=== PATIENT | female | born 1945 | race Caucasian/White ===

== ENCOUNTER 2017-06-02 17:41 | Emergency (ER) | payer OTHER ==
[~2017-06-02] VITALS: Ht 157.5 cm; Wt 62.1 kg
[~2017-06-02 17:41] MED LIST: ABAT250V; ALBU90OI61 INH; ASCO500 PO; ASPI325 PO; ASPI81EC PO; ATEN25 PO; ATOR40TA PO; AZIT250 PO; CALCAVITDA PO; ERGO400 PO; LISHYD1012 PO; METF500C PO; METHI10 PO; Nitrostat0.4 MG SL; ONDA4ODT MM; OXYACE5T PO; OXYC10ER PO; PIOG45 PO; PRAMIPEXOLE0.125 MG PO
[2017-06-02 18:30] LABS: BASOPHILS ABSOLUTE AUTO 0.05 K/mm3 (0.00-0.23); BASOPHILS PERCENT AUTO 0 % (0-2); EOSINOPHILS PERCENT AUTO 2 % (0-6); Hemoglobin 15.2 g/dL (11.5-16.0); IMMATURE GRAN ABSOLUTE AUTO 0.04 K/mm3 (0.00-0.10); IMMATURE GRAN PERCENT AUTO 0 % (0-1); LYMPHOCYTES ABSOLUTE AUTO 3.77 K/mm3 (0.84-5.20); LYMPHOCYTES PERCENT AUTO 31 % (21-46); MONOCYTES ABSOLUTE AUTO 0.72 K/mm3 (0.16-1.47); MONOCYTES PERCENT AUTO 6 % (4-13); Mean Corpuscular HGB 30.4 pg (26.0-34.0); Mean Corpuscular Volume 92 fL (80-100); Mean Platelet Volume 10.6 fL (9.1-12.4); NEUTROPHILS ABSOLUTE AUTO 7.39 K/mm3 (1.96-9.15); NEUTROPHILS PERCENT AUTO 61 % (41-73); Platelet Count 291 K/mm3 (150-400); RDW Coefficient Variation 14.8 % (11.7-14.2); RDW Standard Deviation 49.6 fL (35.1-46.3); White Blood Cell Count 12.17 K/mm3 (4.00-11.30)
[2017-06-02 20:57] LABS: Alanine Aminotransfer (ALT/SGP 15 U/L (12-78); Albumin, Blood 3.2 g/dL (3.4-5.0); Albumin/Globulin Ratio 0.8 (0.8-1.8); Alk Phos 95 U/L (50-136); Anion Gap 7 mmol/L (6-16); Aspartate Aminotrans (AST/SGOT 13 U/L (12-37); Bilirubin, Total 0.3 mg/dL (0.1-1.0); Blood Urea Nitrogen 16 mg/dL (8-24); Bun/Creatinine Ratio 22.9 (12.0-20.0); CO2, Blood 27 mmol/L (21-32); Calcium, Blood 8.8 mg/dL (8.5-10.1); Chloride, Blood 105 mmol/L (98-108); Globulin, Blood 4.2 g/dL (2.2-4.0); Glomerular Filtration Rate >60 (60-); Glucose, Blood 127 mg/dL (70-99); Magnesium, Blood 1.9 mg/dL (1.6-2.4); Potassium, Blood 3.9 mmol/L (3.5-5.5); Sodium, Blood 139 mmol/L (136-145); Total Protein, Blood 7.4 g/dL (6.4-8.2)
== END 2017-06-02 22:42 | disposition home or self-care (01) ==
LOC: ER 17:41
PROVIDERS: Emergency Medicine; Physician Assistant
DX: I10 Essential (primary) hypertension (principal); R00.2 Palpitations; Z88.5 Allergy status to narcotic agent; E11.9 Type 2 diabetes mellitus without complications; E78.00 Pure hypercholesterolemia, unspecified; F17.200 Nicotine dependence, unspecified, uncomplicated
CPT/HCPCS: 36415; 71046; 80053; 83735; 83880; 84484; 85025; 93005; 93010; 96374; 99284

== ENCOUNTER 2018-06-21 13:08 | Inpatient (IN) | payer OTHER ==
[~2018-06-21] VITALS: Ht 154.9 cm; Wt 60.1 kg
[2018-06-21] MEDS ORDERED: PRAV20 PO (13:31)
[2018-06-21] MEDS ORDERED: LISI20 PO (13:31)
[2018-06-21] MEDS ORDERED: ATEN25 PO (13:31)
[2018-06-21 13:34] LABS: BASOPHILS ABSOLUTE AUTO 0.06 K/mm3 (0.00-0.23); BASOPHILS PERCENT AUTO 1 % (0-2); EOSINOPHILS ABSOLUTE AUTO 0.04 K/mm3 (0.00-0.68); EOSINOPHILS PERCENT AUTO 0 % (0-6); Hematocrit 45.6 % (33.0-51.0); Hemoglobin 14.8 g/dL (11.5-16.0); IMMATURE GRAN ABSOLUTE AUTO 0.04 K/mm3 (0.00-0.10); IMMATURE GRAN PERCENT AUTO 0 % (0-1); LYMPHOCYTES ABSOLUTE AUTO 1.84 K/mm3 (0.84-5.20); LYMPHOCYTES PERCENT AUTO 16 % (21-46); MONOCYTES ABSOLUTE AUTO 1.03 K/mm3 (0.16-1.47); MONOCYTES PERCENT AUTO 9 % (4-13); Mean Corpuscular HGB Conc 32.5 g/dL (31.5-36.5); Mean Corpuscular Volume 96 fL (80-100); Mean Platelet Volume 9.9 fL (9.1-12.4); NEUTROPHILS ABSOLUTE AUTO 8.76 K/mm3 (1.96-9.15); NEUTROPHILS PERCENT AUTO 75 % (41-73); Platelet Count 279 K/mm3 (150-400); RDW Coefficient Variation 13.7 % (11.7-14.2); RDW Standard Deviation 48.7 fL (35.1-46.3); Red Blood Cell Count 4.77 M/mm3 (3.80-5.20); White Blood Cell Count 11.77 K/mm3 (4.00-11.30)
[2018-06-21 13:51] LABS: Alanine Aminotransfer (ALT/SGP 19 U/L (12-78); Albumin, Blood 3.4 g/dL (3.4-5.0); Albumin/Globulin Ratio 0.8 (0.8-1.8); Alk Phos 81 U/L (50-136); Anion Gap 10 mmol/L (6-16); Aspartate Aminotrans (AST/SGOT 22 U/L (12-37); Bilirubin, Total 0.5 mg/dL (0.1-1.0); Blood Urea Nitrogen 9 mg/dL (8-24); Bun/Creatinine Ratio 10.9 (12.0-20.0); CO2, Blood 25 mmol/L (21-32); Calcium, Blood 8.5 mg/dL (8.5-10.1); Chloride, Blood 100 mmol/L (98-108); Creatinine, Blood 0.83 mg/dL (0.40-1.00); Globulin, Blood 4.3 g/dL (2.2-4.0); Glomerular Filtration Rate >60 (60-); Glucose, Blood 157 mg/dL (70-99); Potassium, Blood 3.6 mmol/L (3.5-5.5); Sodium, Blood 135 mmol/L (136-145); Total Protein, Blood 7.7 g/dL (6.4-8.2); Troponin I <0.015 ng/mL (0.000-0.040)
[2018-06-22 04:59] LABS: Hematocrit 44.2 % (33.0-51.0); Hemoglobin 14.2 g/dL (11.5-16.0); Mean Corpuscular HGB 30.5 pg (26.0-34.0); Mean Corpuscular HGB Conc 32.1 g/dL (31.5-36.5); Mean Corpuscular Volume 95 fL (80-100); Mean Platelet Volume 10.4 fL (9.1-12.4); Platelet Count 301 K/mm3 (150-400); RDW Coefficient Variation 13.7 % (11.7-14.2); RDW Standard Deviation 48.1 fL (35.1-46.3); Red Blood Cell Count 4.65 M/mm3 (3.80-5.20); White Blood Cell Count 8.84 K/mm3 (4.00-11.30)
[2018-06-22 05:18] LABS: Anion Gap 11 mmol/L (6-16); Blood Urea Nitrogen 13 mg/dL (8-24); Bun/Creatinine Ratio 17.3 (12.0-20.0); CO2, Blood 24 mmol/L (21-32); Calcium, Blood 8.7 mg/dL (8.5-10.1); Chloride, Blood 100 mmol/L (98-108); Creatinine, Blood 0.75 mg/dL (0.40-1.00); Glomerular Filtration Rate >60 (60-); Glucose, Blood 205 mg/dL (70-99); Potassium, Blood 3.7 mmol/L (3.5-5.5); Sodium, Blood 135 mmol/L (136-145)
--- NOTE | 2018-06-22 06:38 | NUR ---
a+o, no complaint of sob, wheeze in all 4 quadrants, up most of night states she rarely sleeps more than 2 hours at a stretch, saline locked, 2 L via nc, call light in reach, will continue to monitor and provide appropriat care until report given to returning day shift
--- NOTE | 2018-06-22 12:40 | NUR ---
PT WORRIED ABOUT INSULIN PT WORRIED ABOUT TAKING INSULIN FOR MEAL COVERAGE. PT STATES SHE "DOESNT WANT TO BE ON INSULIN" PT EDUCATED ON NEED FOR IT WHILE IN THE HOSPITAL. PT AGREED TO TAKE COVERAGE.
--- NOTE | 2018-06-22 13:09 | NUR ---
Patient was sitting up in bed and alert when I entered the room. I introduced myself and explained about the department I am from and patient welcomed me warmly saying that she had been expecting me. Patient shared about her health history and some of her current emotional and spiritual concerns and discussed her family unit complications. I listened empathically, explored patient's tenriism beliefs, provided spiritual direction, reinforced helpful attitudes and practices, provided anxiety contaimment and provided prayer. Patient responded well to all interventions and showed signs of restored eva and an elevated mood. Patient expressed gratitude for the visit and asked if I could return the next day.
--- NOTE | 2018-06-22 14:32 | NUR ---
Pt gave [facility] permission to provide care on 06/23/18.
--- NOTE | 2018-06-22 17:46 | NUR ---
SHIFT ASSESSMENT PT HAD A HR IN THE 130S FOR AFTERNOON VITALS WITH A TEMP OF 99.9. CHARGE NURSE NOTIFIED & TYLENOL GIVEN FOR TEMP. TEMP REASSESSED & DECREASED TO 99.3. HR ALSO DECREASED TO 112. WILL CONTINUE TO MONITOR. PT ON 0.5L O2 VIA NC & SATING IN THE 90S. PT DESATS TO 89 ON RA. PT INCREASE IN WHEEZING THIS AFTERNOON, BUT STATES NO SOB. NO OTHER CHANGES IN ASSESSMENT AT THIS TIME. OTHER VITALS STABLE. PT IND IN ROOM AND HAS WALKED THE HALLWAYS IND THIS SHIFT. WILL CONTINUE TO MONITOR UNTIL TURNOVER IS COMPLETE.
--- NOTE | 2018-06-22 18:40 | NUR ---
DR. MCKINNEY CALLED-PT HR ELEVATED DR. MCKINNEY CALLED & INFORMED THAT PT HR RETURNED TO [address] MCKINNEY ORDERED A OT DOSE OF 12.5 METOPEROL TO COVER THE PT RATE. WILL CONTINUE TO MONITOR UNTIL TURNOVER IS COMPLETE. AWAITING MED VERIFICATION.
--- NOTE | 2018-06-23 07:15 | NUR ---
a+o able to make needs known, utilizing a fan, call light in reach, saline locked, 1L via nc, walking rounds completed with day staff
--- NOTE | 2018-06-23 17:19 | NUR ---
SHIFT SUMMARY. A&OX4, SBA WITH FWW IN ROOM. PT CONTINUES WITH 1L O2 NC, DOES NOT USE O2 AT BASELINE, REPORTS BREATHING HAS IMPROVED SINCE ADMISSION. PT DENIES PAIN, N/V, REPORTS HAS HAD POOR APPETITE FOR EXTENDED PERIOD OF TIME PRIOR TO ADMISSION. NO OTHER CHANGES.
--- NOTE | 2018-06-24 05:17 | NUR ---
NOC SHIFT SUMMARY THIS PATIENT HAS BEEN PLEASANT AND COOPERATIVE WITH CARE THIS NIGHT. EARLY IN THE NIGHT SHE COMPLAINED OF COUGH WHICH WAS TREATED WITH TESSALON PEARLS. SINCE THEN SHE HAS SLEPT RESFULLY THROUGH THE NIGHT. VSS. WILL CONTINUE TO MONITOR.
--- NOTE | 2018-06-24 12:55 | NUR ---
Spiritual care visit conducted. Patient was sitting on the edge of her bed and alert when I entered the room. Patient welcomed me in (Patient is known to me from prior [facility] visits). Patient shared with me about her joys and concerns about moving to a SNF. I listened empathically, normalized her experience, provided a calming presence and provided prayer. Patient responded well to all interventions and showed signs of reduced stress. Patient expressed gratitude for my visit.
--- NOTE | 2018-06-24 17:52 | NUR ---
SHIFT SUMMARY. A&OX4, SBA WITH FWW TO BATHROOM, OCCASIONAL INCONTINENCE. PT CONTINUES WIHT DRY HACKING COUGH AT TIMES, MANAGED WELL WITH CURRENT ORDERS. PT WITH WHEEZES THROUGHOUT LUNGS, CONTINUES WITH SCHEDULED NEB TREATMENTS PER RT. O2 1L NC. PT SEEN BY COPD EDUCATOR AND SS TODAY. ALLIED HEALTH NURSE SAW PT. PAPERWORK STARTED FOR MEDICAID ELIGIBILITY PER SS. PT TO FOLLOW UP WITH [facility] AFTER DISCHARGE. HOME HEALTH HAS BEEN ORDERED WELL. PT RECIEVED SHOWER TODAY. NO OTHER CHANGES.
[2018-06-25 05:07] LABS: BASOPHILS ABSOLUTE AUTO 0.01 K/mm3 (0.00-0.23); BASOPHILS PERCENT AUTO 0 % (0-2); EOSINOPHILS ABSOLUTE AUTO 0.02 K/mm3 (0.00-0.68); EOSINOPHILS PERCENT AUTO 0 % (0-6); Hematocrit 40.5 % (33.0-51.0); IMMATURE GRAN ABSOLUTE AUTO 0.08 K/mm3 (0.00-0.10); IMMATURE GRAN PERCENT AUTO 1 % (0-1); LYMPHOCYTES ABSOLUTE AUTO 1.08 K/mm3 (0.84-5.20); LYMPHOCYTES PERCENT AUTO 8 % (21-46); MONOCYTES ABSOLUTE AUTO 0.64 K/mm3 (0.16-1.47); MONOCYTES PERCENT AUTO 5 % (4-13); Mean Corpuscular HGB 30.4 pg (26.0-34.0); Mean Corpuscular HGB Conc 32.1 g/dL (31.5-36.5); Mean Corpuscular Volume 95 fL (80-100); Mean Platelet Volume 10.5 fL (9.1-12.4); NEUTROPHILS ABSOLUTE AUTO 11.54 K/mm3 (1.96-9.15); NEUTROPHILS PERCENT AUTO 86 % (41-73); Platelet Count 303 K/mm3 (150-400); Red Blood Cell Count 4.27 M/mm3 (3.80-5.20); White Blood Cell Count 13.37 K/mm3 (4.00-11.30)
[2018-06-25 05:45] LABS: Albumin, Blood 2.9 g/dL (3.4-5.0); Anion Gap 7 mmol/L (6-16); Blood Urea Nitrogen 17 mg/dL (8-24); Bun/Creatinine Ratio 22.5 (12.0-20.0); CO2, Blood 31 mmol/L (21-32); Calcium, Blood 8.2 mg/dL (8.5-10.1); Chloride, Blood 99 mmol/L (98-108); Creatinine, Blood 0.76 mg/dL (0.40-1.00); Glomerular Filtration Rate >60 (60-); Glucose, Blood 220 mg/dL (70-99); Phosphorus, Blood 2.4 mg/dL (2.5-4.9); Potassium, Blood 4.1 mmol/L (3.5-5.5); Sodium, Blood 137 mmol/L (136-145)
--- NOTE | 2018-06-25 06:15 | NUR ---
NOC SHIFT SUMMARY. THIS PT HAS BEEN VERY PLEASANT AND COOPERATIVE WITH CARE. SHE IS AAOX4, RESP HAVE BEEN EVEN UNLABORED. SHE IS CONSISTENT WITH CALLING FOR ASSISTANCE WHEN NEEDING TO GET UP. SHE SPENT MOST OF THE NIGHT SLEEPING RESTFULLY. CURRENLY AWAKE, IN NO ACUTE DISTRESS. WILL CONTINUE TO MONITOR.
--- NOTE | 2018-06-25 08:10 | NUR ---
PT PLEASANT COOP ALERT ORIENTED. SOME FORGETFUL. DENIES PAIN. H/R REG, MURMER NOTED. NO TELE. LUNGS WHEEZY T/O. ON 1L 02. RESP EASY, UNLABORED. BT X4 LAST BM 2 DAYS PER PT. INCONT. VOIDS INCONT. IN ATTENDS. BED IN LOW POSITION, CALL LITE IN REACH, BED ALARM ON FOR SAFETY. PT AMBULATES INDEPENDANTLY
[2018-06-25] MEDS ORDERED: ACET325 PO (12:43)
[2018-06-25] MEDS ORDERED: ALBU90OI INH (12:44)
[2018-06-25] MEDS ORDERED: BENZ100A PO (12:45)
[2018-06-25] MEDS ORDERED: ROBITUSSIN NIG237 ML PO (12:46)
[2018-06-25] MEDS ORDERED: DOXY100 PO (12:48)
[2018-06-25] MEDS ORDERED: Senna Plus Tab1 EACH PO (12:48)
[2018-06-25] MEDS ORDERED: GUAI600T33 PO (12:49)
[2018-06-25] MEDS ORDERED: Prednisone50 MG PO (12:50)
[2018-06-25] MEDS ORDERED: Acidophilus La100 GM PO (12:50)
[2018-06-25] MEDS ORDERED: ONDA4ODT MM (12:53)
[2018-06-25] MEDS ORDERED: NICO21TP TOP (12:53)
--- NOTE | 2018-06-25 14:30 | NUR ---
DISCHARGE REVIEWED WITH PT. PT VERBALIZED UNDERSTANDING OF MEDS, APPOINTMENT, AND INSTRUCTIONS. IV PULLED IN TACT. NO TELE. PT WHEELED TO DOOR BY AIDE. AT 1439
== END 2018-06-25 14:38 | disposition home or self-care (01) | DRG 189 ==
LOC: ER 13:08 → MEDS 15:57 → ENPENDDIS 06-25 10:26 → MEDS 06-25 14:38
PROVIDERS: Family Medicine; Physician Assistant; ADMIT Internal Medicine
DX: J96.21 Acute and chronic respiratory failure with hypoxia (principal); J44.1 Chronic obstructive pulmonary disease with (acute) exacerbation; R65.10 Systemic inflammatory response syndrome (SIRS) of non-infectious origin without acute organ dysfunction; J96.22 Acute and chronic respiratory failure with hypercapnia; E03.9 Hypothyroidism, unspecified; E11.59 Type 2 diabetes mellitus with other circulatory complications; E78.5 Hyperlipidemia, unspecified; F17.210 Nicotine dependence, cigarettes, uncomplicated; I73.9 Peripheral vascular disease, unspecified; I10 Essential (primary) hypertension
CPT/HCPCS: 36415; 71046; 80048; 80053; 80069; 82947; 83605; 83880; 84145; 84484; 85025; 85027; 93005; 93010; 93922; 94640; 94664; 94667; 94760; 94761; 96365; 96375; 98960; 99285-25; 99406; J0696; J1650; J2405; J2930; J7120

== ENCOUNTER → 2019-04-14 | Outpatient (CLI) | payer OTHER ==
[~2019-04-14] MED LIST changes: +ACET325 PO; +ALBU90OI INH; +Acidophilus La100 GM PO; +Aspir 8181 MG PO; +BENZ100A PO; +DOXY100 PO; +GUAI600T33 PO; +HYDCHL12.5 PO; +LISI20 PO; +NICO21TP TOP; +PRAV20 PO; +Prednisone50 MG PO; +ROBITUSSIN NIG237 ML PO; +Senna Plus Tab1 EACH PO
== END | disposition home or self-care (01) ==
LOC: LAB UCHC 15:06 → LAB SHORT 15:06
DX: N39.0 Urinary tract infection, site not specified (principal)
CPT/HCPCS: 87077; 87086; 87186

== ENCOUNTER → 2019-07-17 | Outpatient (CLI) | payer OTHER | LOC: LAB UCHC 10:20 → LAB SHORT 10:20 | DX: R30.9 Painful micturition, unspecified (principal); R10.31 Right lower quadrant pain | CPT/HCPCS: 87077; 87086; 87186 ==

== ENCOUNTER 2019-09-08 20:27 | Emergency (ER) | payer OTHER ==
[~2019-09-08] VITALS: Ht 157.5 cm; Wt 54.4 kg
[2019-09-08] MEDS ORDERED: Ventolin/Prove6.7 GM INH (20:57)
[2019-09-08] MEDS ORDERED: DONE5 PO (20:59)
[2019-09-08] MEDS ORDERED: LOSA50 PO (21:00)
[2019-09-08 21:05] LABS: BASOPHILS ABSOLUTE AUTO 0.06 K/mm3 (0.00-0.23); BASOPHILS PERCENT AUTO 0 % (0-2); EOSINOPHILS ABSOLUTE AUTO 0.11 K/mm3 (0.00-0.68); EOSINOPHILS PERCENT AUTO 1 % (0-6); Hematocrit 38.1 % (33.0-51.0); Hemoglobin 12.5 g/dL (11.5-16.0); IMMATURE GRAN PERCENT AUTO 1 % (0-1); LYMPHOCYTES PERCENT AUTO 20 % (21-46); MONOCYTES ABSOLUTE AUTO 1.77 K/mm3 (0.16-1.47); MONOCYTES PERCENT AUTO 9 % (4-13); Mean Corpuscular HGB 29.3 pg (26.0-34.0); Mean Corpuscular HGB Conc 32.8 g/dL (31.5-36.5); Mean Corpuscular Volume 89 fL (80-100); Mean Platelet Volume 9.6 fL (9.1-12.4); NEUTROPHILS PERCENT AUTO 70 % (41-73); Platelet Count 431 K/mm3 (150-400); RDW Coefficient Variation 15.2 % (11.7-14.2); RDW Standard Deviation 49.3 fL (35.1-46.3); Red Blood Cell Count 4.26 M/mm3 (3.80-5.20); White Blood Cell Count 18.84 K/mm3 (4.00-11.30)
[2019-09-08 21:19] LABS: Alanine Aminotransfer (ALT/SGP 18 U/L (12-78); Albumin, Blood 2.9 g/dL (3.4-5.0); Albumin/Globulin Ratio 0.6 (0.8-1.8); Alk Phos 117 U/L (50-136); Anion Gap 5 mmol/L (6-16); Aspartate Aminotrans (AST/SGOT 16 U/L (12-37); Bilirubin, Total 0.5 mg/dL (0.1-1.0); Blood Urea Nitrogen 10 mg/dL (8-24); Bun/Creatinine Ratio 14.8 (12.0-20.0); CO2, Blood 27 mmol/L (21-32); Calcium, Blood 8.6 mg/dL (8.5-10.1); Chloride, Blood 98 mmol/L (98-108); Creatinine, Blood 0.68 mg/dL (0.40-1.00); Globulin, Blood 4.7 g/dL (2.2-4.0); Glomerular Filtration Rate >60 (60-); Glucose, Blood 158 mg/dL (70-99); Potassium, Blood 3.6 mmol/L (3.5-5.5); Sodium, Blood 130 mmol/L (136-145); Total Protein, Blood 7.6 g/dL (6.4-8.2); Troponin I <0.015 ng/mL (0.000-0.040)
[2019-09-08] MEDS ORDERED: PRED20 PO (22:06)
[2019-09-08] MEDS ORDERED: AZIT250 PO (22:06)
== END 2019-09-08 22:33 | disposition home or self-care (01) ==
LOC: ER 20:27
PROVIDERS: Emergency Medicine
DX: J44.1 Chronic obstructive pulmonary disease with (acute) exacerbation (principal); E11.9 Type 2 diabetes mellitus without complications; I10 Essential (primary) hypertension; E78.5 Hyperlipidemia, unspecified; E03.9 Hypothyroidism, unspecified; F17.210 Nicotine dependence, cigarettes, uncomplicated; Z88.5 Allergy status to narcotic agent; Z79.899 Other long term (current) drug therapy; Z79.51 Long term (current) use of inhaled steroids; Z79.82 Long term (current) use of aspirin
CPT/HCPCS: 36415; 71045; 80053; 83880; 84484; 85025; 93005; 93010; 99284-25

== ENCOUNTER → 2020-03-13 | Outpatient (CLI) | payer OTHER ==
[~2020-03-13] MED LIST changes: +DONE5 PO; +LOSA50 PO; +PRED20 PO; +Ventolin/Prove6.7 GM INH
== END | disposition home or self-care (01) ==
LOC: LAB UCHC 11:55 → LAB SHORT 11:55
DX: N39.0 Urinary tract infection, site not specified (principal)
CPT/HCPCS: 87077; 87086; 87186

== ENCOUNTER → 2021-04-16 | Outpatient (CLI) | payer OTHER ==
[2021-04-16 18:54] LABS: BASOPHILS ABSOLUTE AUTO 0.11 K/mm3 (0.00-0.23); BASOPHILS PERCENT AUTO 1 % (0-2); EOSINOPHILS ABSOLUTE AUTO 0.24 K/mm3 (0.00-0.68); EOSINOPHILS PERCENT AUTO 2 % (0-6); Hematocrit 43.8 % (33.0-51.0); Hemoglobin 14.4 g/dL (11.5-16.0); IMMATURE GRAN ABSOLUTE AUTO 0.03 K/mm3 (0.00-0.10); IMMATURE GRAN PERCENT AUTO 0 % (0-1); LYMPHOCYTES ABSOLUTE AUTO 3.12 K/mm3 (0.84-5.20); LYMPHOCYTES PERCENT AUTO 29 % (21-46); MONOCYTES ABSOLUTE AUTO 0.85 K/mm3 (0.16-1.47); MONOCYTES PERCENT AUTO 8 % (4-13); Mean Corpuscular HGB 29.8 pg (26.0-34.0); Mean Corpuscular HGB Conc 32.9 g/dL (31.5-36.5); Mean Corpuscular Volume 91 fL (80-100); Mean Platelet Volume 10.9 fL (9.1-12.4); NEUTROPHILS ABSOLUTE AUTO 6.34 K/mm3 (1.96-9.15); NEUTROPHILS PERCENT AUTO 59 % (41-73); Platelet Count 297 K/mm3 (150-400); RDW Standard Deviation 46.8 fL (35.1-46.3); Red Blood Cell Count 4.83 M/mm3 (3.80-5.20); White Blood Cell Count 10.69 K/mm3 (4.00-11.30)
[2021-04-16 19:19] LABS: Alanine Aminotransfer (ALT/SGP 28 U/L (12-78); Albumin, Blood 3.6 g/dL (3.4-5.0); Albumin/Globulin Ratio 0.8 (0.8-1.8); Alk Phos 82 U/L (50-136); Anion Gap 6 mmol/L (6-16); Aspartate Aminotrans (AST/SGOT 23 U/L (12-37); Bilirubin, Total 0.2 mg/dL (0.1-1.0); Blood Urea Nitrogen 17 mg/dL (8-24); Bun/Creatinine Ratio 25.9 (12.0-20.0); CHOL/HDL RATIO 3.8; CO2, Blood 25 mmol/L (21-32); Calcium, Blood 9.2 mg/dL (8.5-10.1); Chloride, Blood 100 mmol/L (98-108); Cholesterol 152 mg/dL (50-200); Creatinine, Blood 0.66 mg/dL (0.40-1.00); Globulin, Blood 4.4 g/dL (2.2-4.0); Glomerular Filtration Rate >60 (60-); Glucose, Blood 99 mg/dL (70-99); HDL Cholesterol 40 mg/dL (>39); LDL/HDL RATIO 2.1; Low Density Lipoprotein Chol 83 mg/dL (0-110); Potassium, Blood 4.3 mmol/L (3.5-5.5); Sodium, Blood 131 mmol/L (136-145); Triglycerides 144 mg/dL (30-160); Very Low Density Lipoprot Chol 28 mg/dL (6-32)
[2021-04-16 19:28] LABS: Thyroid Stimulating Hormone 0.073 uIU/mL (0.360-4.800)
== END ==
LOC: LAB SHORT 17:50
PROVIDERS: Family Medicine
DX: I10 Essential (primary) hypertension (principal); E78.5 Hyperlipidemia, unspecified; R79.89 Other specified abnormal findings of blood chemistry
CPT/HCPCS: 80053; 80061; 84443; 85025

== ENCOUNTER 2022-01-08 13:32 | Emergency (ER) | payer OTHER ==
[~2022-01-08] VITALS: Ht 157.5 cm; Wt 54.4 kg
[2022-01-08 14:26] LABS: BASOPHILS ABSOLUTE AUTO 0.08 K/mm3 (0.00-0.23); BASOPHILS PERCENT AUTO 1 % (0-2); EOSINOPHILS ABSOLUTE AUTO 0.07 K/mm3 (0.00-0.68); EOSINOPHILS PERCENT AUTO 1 % (0-6); Hematocrit 41.5 % (33.0-51.0); Hemoglobin 14.2 g/dL (11.5-16.0); IMMATURE GRAN ABSOLUTE AUTO 0.03 K/mm3 (0.00-0.10); IMMATURE GRAN PERCENT AUTO 0 % (0-1); LYMPHOCYTES ABSOLUTE AUTO 2.34 K/mm3 (0.84-5.20); LYMPHOCYTES PERCENT AUTO 23 % (21-46); MONOCYTES PERCENT AUTO 7 % (4-13); Mean Corpuscular HGB 30.2 pg (26.0-34.0); Mean Corpuscular HGB Conc 34.2 g/dL (31.5-36.5); Mean Corpuscular Volume 88 fL (80-100); NEUTROPHILS ABSOLUTE AUTO 6.92 K/mm3 (1.96-9.15); NEUTROPHILS PERCENT AUTO 68 % (41-73); Platelet Count 288 K/mm3 (150-400); RDW Coefficient Variation 13.7 % (11.7-14.2); RDW Standard Deviation 44.6 fL (35.1-46.3); White Blood Cell Count 10.14 K/mm3 (4.00-11.30)
[2022-01-08 14:45] LABS: Albumin, Blood 3.4 g/dL (3.4-5.0); Albumin/Globulin Ratio 0.8 (0.8-1.8); Bilirubin, Total 0.5 mg/dL (0.1-1.0); Bun/Creatinine Ratio 7.2 (12.0-20.0); Calcium, Blood 8.9 mg/dL (8.5-10.1); Creatinine, Blood 0.69 mg/dL (0.40-1.00); Potassium, Blood 3.1 mmol/L (3.5-5.5); Total Protein, Blood 7.4 g/dL (6.4-8.2)
[2022-01-08 16:55] LABS: Source, Urine Clean Catch
[2022-01-08 16:59] LABS: Appearance, Urine Hazy (Clear); Bilirubin, Urine Neg (Neg); Blood, Urine 1+ (Neg); Color, Urine Yellow (P-Yellow); Glucose Qualitative, Urine Neg (Neg); Ketones, Urine Neg (Neg); Leukocyte Esterase, Urine 3+ (Neg); Nitrite, Urine Pos (Neg); Protein, Urine 1+ (Neg); Specific Gravity, Urine 1.005 (1.003-1.022); Urobilinogen, Urine NORM (Normal)
[2022-01-08 17:11] LABS: Bacteria Many /hpf; Squamous Epithelial Cells Few /hpf (Few)
[2022-01-08] MEDS ORDERED: CEPH500 PO (17:44)
== END 2022-01-08 18:13 | disposition home or self-care (01) ==
LOC: ER 13:32
PROVIDERS: Physician Assistant
DX: N39.0 Urinary tract infection, site not specified (principal); E11.9 Type 2 diabetes mellitus without complications; I10 Essential (primary) hypertension; J44.9 Chronic obstructive pulmonary disease, unspecified; F17.210 Nicotine dependence, cigarettes, uncomplicated; Z79.899 Other long term (current) drug therapy; Z88.5 Allergy status to narcotic agent
CPT/HCPCS: 80053; 81001; 85025; 87077; 87086; 87186; 99283; A9270; J7030

== ENCOUNTER → 2022-01-15 | Outpatient (CLI) | payer OTHER ==
[~2022-01-15] MED LIST changes: +CEPH500 PO
== END | disposition home or self-care (01) ==
LOC: LAB 18:21 → LAB SHORT 18:21
DX: N39.0 Urinary tract infection, site not specified (principal)
CPT/HCPCS: 87077; 87086; 87186

== ENCOUNTER 2022-03-10 07:01 | Inpatient (IN) | payer OTHER ==
[~2022-03-10] VITALS: Ht 152.4 cm; Wt 57.1 kg
[~2022-03-10 07:01] MED LIST changes: +METO50ER PO; -PRAV20 PO; +PRAVASTATIN SOD40 MG PO
[2022-03-10 08:19] LABS: Source, Urine Straight Cath
[2022-03-10 08:21] LABS: Appearance, Urine Clear (Clear); Bilirubin, Urine Neg (Neg); Blood, Urine 2+ (Neg); Color, Urine Amber (P-Yellow); Glucose Qualitative, Urine Neg (Neg); Ketones, Urine 2+ (Neg); Leukocyte Esterase, Urine 1+ (Neg); Nitrite, Urine Pos (Neg); Protein, Urine 2+ (Neg); Urobilinogen, Urine 1+ (Normal)
[2022-03-10 08:32] LABS: BASOPHILS ABSOLUTE AUTO 0.01 K/mm3 (0.00-0.23); BASOPHILS PERCENT AUTO 0 % (0-2); EOSINOPHILS ABSOLUTE AUTO 0.01 K/mm3 (0.00-0.68); EOSINOPHILS PERCENT AUTO 0 % (0-6); Hematocrit 41.4 % (33.0-51.0); Hemoglobin 14.2 g/dL (11.5-16.0); IMMATURE GRAN ABSOLUTE AUTO 0.07 K/mm3 (0.00-0.10); IMMATURE GRAN PERCENT AUTO 1 % (0-1); LYMPHOCYTES ABSOLUTE AUTO 1.26 K/mm3 (0.84-5.20); LYMPHOCYTES PERCENT AUTO 10 % (21-46); MONOCYTES ABSOLUTE AUTO 1.09 K/mm3 (0.16-1.47); MONOCYTES PERCENT AUTO 9 % (4-13); Mean Corpuscular HGB 29.7 pg (26.0-34.0); Mean Corpuscular HGB Conc 34.3 g/dL (31.5-36.5); Mean Corpuscular Volume 87 fL (80-100); Mean Platelet Volume 9.4 fL (9.1-12.4); NEUTROPHILS ABSOLUTE AUTO 10.44 K/mm3 (1.96-9.15); NEUTROPHILS PERCENT AUTO 81 % (41-73); Platelet Count 251 K/mm3 (150-400); RDW Coefficient Variation 14.8 % (11.7-14.2); RDW Standard Deviation 46.6 fL (35.1-46.3); Red Blood Cell Count 4.78 M/mm3 (3.80-5.20); White Blood Cell Count 12.88 K/mm3 (4.00-11.30)
[2022-03-10 08:38] LABS: Bacteria Many /hpf; Squamous Epithelial Cells Many /hpf (Few)
[2022-03-10 08:39] LABS: White Blood Cells, Urine 0-2 /hpf (0-5)
[2022-03-10 08:40] LABS: Red Blood Cells, Urine 0-2 /hpf (0-2)
[2022-03-10 08:42] LABS: Transitional Epithelial Cells Few /hpf (0-Rare)
[2022-03-10 08:53] LABS: Albumin, Blood 2.9 g/dL (3.4-5.0); Albumin/Globulin Ratio 0.7 (0.8-1.8); Bilirubin, Total 0.8 mg/dL (0.1-1.0); Bun/Creatinine Ratio 18.6 (12.0-20.0); Calcium, Blood 9.1 mg/dL (8.5-10.1); Creatinine, Blood 0.59 mg/dL (0.40-1.00); Globulin, Blood 3.9 g/dL (2.2-4.0); Magnesium, Blood 1.7 mg/dL (1.6-2.4); Total Protein, Blood 6.8 g/dL (6.4-8.2)
[2022-03-10] MEDS ORDERED: CEFD300 PO (09:44)
[2022-03-10 10:50] LABS: Influenza A, PCR NEGATIVE (NEGATIVE); Influenza B, PCR NEGATIVE (NEGATIVE); Resp Syncytial Virus, PCR NEGATIVE (NEGATIVE); SARS-Cov-2 (COVID-19) PCR, MMC NEGATIVE (NEGATIVE)
[2022-03-10 11:37] LABS: Creatine Kinase MB 7.2 ng/mL (0.0-3.6)
--- NOTE | 2022-03-10 18:50 | NUR ---
RECIEVED REPORT FROM YAHIR ALLERD IN ER AROUND 1500 REGARDING PATIENT ADMITTING TO MEDICAL FLOOR WITH DIAGNOSIS OF SEPSIS SECONDARY TO UTI. PATIENT ARRIVED TO ROOM 326 AROUND 1530 VIA GURNEY. PATIENT TRANSFERRED TO BED USING SLIDER SHEET. PATIENT ALERT AND ORIENTED TO SELF. SLOW TO RESPOND AND ABLE TO FOLLOW SIMPLE COMMAND. PATIENT ON TELE AFIB IN 80'S BPM PER COMMUNICATIONS SCIENTIST LALI. PATIENT HAD JEROME PLACED IN ER. ADMISSION AND MEDS RECONCILLATION WAS COMPLETED. VITAL SIGNS REVIEWED. BS TAKEN AND WAS 103. PATIENT DID NOT RECIEVED COVERAGED. BED IN LOWEST POSITION LOCKED, BED ALARM ON AND CALL LIGHT IN REACH.
--- NOTE | 2022-03-10 20:08 | NUR ---
NOTE NEW IV PLACED AND BOLUS OF NS RESTARTED.
--- NOTE | 2022-03-10 23:26 | NUR ---
NOTE CALLED BY TELE, PT HR IN 120'S UP TO [address] DUQUE. HE STS IF ASYMPTOMATIC KEEP GIVING HER NS FLUID AND CONTINUE TO MONITOR HER. WILL CONTINUE NS AT 125/HR AND WILL MONITOR HER HR AND BLOOD PRESSURE.
--- NOTE | 2022-03-11 04:39 | NUR ---
SHIFT SUMMARY PT CONTINUES TO HAVE FLUIDS RUNNING. PT HR CONTINUES TO BE IN THE 110'S AND 120'S. PT ASYMPTOMATIC. PT HAS BEEN SLEEPING OFF AND ON MUCH OF THE NIGHT. PT'S MOST RECENT VITALS ARE THE BEST THEY HAVE BEEN TONIGHT. PT STS THAT SHE IS TIRED BUT NOT IN PAIN. PT IS ASKING FOR COFFEE. PT DOES HAVE SOME MOMENTS OF CONFUSION. WHILE ASKING FOR COFFEE SHE STS SHE NEEDS SOMETHING FOR THE CHILDREN. PT IS PLEASANT AND COOPERATIVE. CALL LIGHT IS WITHIN HER REACH AND SHE STS SHE KNOWS HOW TO USE IT.
[2022-03-11 05:29] LABS: Hematocrit 34.8 % (33.0-51.0); Hemoglobin 11.9 g/dL (11.5-16.0); Mean Corpuscular HGB 29.5 pg (26.0-34.0); Mean Corpuscular HGB Conc 34.2 g/dL (31.5-36.5); Mean Corpuscular Volume 86 fL (80-100); Mean Platelet Volume 9.4 fL (9.1-12.4); Platelet Count 249 K/mm3 (150-400); RDW Coefficient Variation 14.9 % (11.7-14.2); RDW Standard Deviation 47.1 fL (35.1-46.3); Red Blood Cell Count 4.03 M/mm3 (3.80-5.20); White Blood Cell Count 11.55 K/mm3 (4.00-11.30)
[2022-03-11 06:03] LABS: Anion Gap 10 mmol/L (6-16); Blood Urea Nitrogen 9 mg/dL (8-24); Bun/Creatinine Ratio 16.3 (12.0-20.0); CHOL/HDL RATIO 2.7; CO2, Blood 24 mmol/L (21-32); Calcium, Blood 8.2 mg/dL (8.5-10.1); Chloride, Blood 99 mmol/L (98-108); Cholesterol 120 mg/dL (50-200); Creatinine, Blood 0.55 mg/dL (0.40-1.00); Glomerular Filtration Rate 94 (60-); Glucose, Blood 90 mg/dL (70-99); HDL Cholesterol 45 mg/dL (>39); LDL/HDL RATIO 1.4; Low Density Lipoprotein Chol 64 mg/dL (0-110); Potassium, Blood 3.2 mmol/L (3.5-5.5); Sodium, Blood 133 mmol/L (136-145); Triglycerides 54 mg/dL (30-160); Very Low Density Lipoprot Chol 10 mg/dL (6-32)
[2022-03-11] MEDS ORDERED: NITR100CA PO (16:34)
[2022-03-11] MEDS ORDERED: FLUTICASONE-SA1 EAC8 INH (16:35)
[2022-03-11] MEDS ORDERED: PRAMIPEXOLE D0.25 M1 PO (16:38)
--- NOTE | 2022-03-11 19:14 | NUR ---
SHIFT SUMMARY: PATIENT ALERT AND ORIENTED TO SELF. ABLE TO FOLLOW SIMPLE COMMAND. PATIENT FAVOR TO HER RIGHT SIDE AND NEGLECTING HER LEFT SIDE. PUPILS ARE EQUAL. PATIENT ON TELE AND HAS BEEN RUNNING AFIB 110'S-150'S. PATIENT ON RA WITH SPO2 ABOVE 92%. BEDREST AND TURN Q2. SPEECH THERAPY DID A SWALLOW EVAL TODAY. DIET CHANGED TO PUREE WITH NO STRAW AND FEEDER 1:1. HEAD CT WAS DONE TODAY. INFUSING NS 125 MLS/HR. JEROME PATENT DRAIN TO GRAVITY WITH CLEAR YELLOW URINE. PATIENT HAD A BEDBATH TODAY AND TOLERATED WELL. POOR APPETITE. ATE ABOUT 10% ALL HER MEALS TODAY. RECEIVED ALL SCHEDULED MEDS THIS SHIFT. VITAL SIGNS REVIEWED. BED IN LOWEST POSITION, LOCKED AND CALL LIGHT IN REACH.
--- NOTE | 2022-03-12 01:31 | NUR ---
NOTE PT HR INTO THE 130'S-170'S. DR. GONZALEZ CONSULTED. EKG PERFORMED. DR. GONZALEZ CAME TO THE ROOM AND THERAPEUTIC TREATMENTS DONE AND 5MG METROPROLOL PUSH GIVEN TO PT. PT HR NOW IN THE 110'S-120'S, WHICH IS WHERE SHE HAD BEEN PREVIOUSLY. VITALS MONITORED AND TELE CONTINUES TO BE MONITORED. FLUIDS DISCONTINUED PER
--- NOTE | 2022-03-12 04:44 | NUR ---
SHIFT SUMMARY PT WAS HAVING HR ISSUES (SEE PREVIOUS NOTE). PT HR NOW AROUND 80'S. PT HAS NO CURRENT COMPLAINTS AND APPEARS TO BE RESTING QUIETLY. PT HAS BEEN PLEASANT AND COOPERATIVE. PT STILL LEANING TO HER R SIDE AND IS HAVING SOME DIFFICULTY TURNING HER NECK FROM THE RIGHT SIDE TO THE MIDDLE OR THE LEFT. IS AWARE. PT HAD DIFFICULTY SWALLOWING HER PILLS WITH APPLESAUCE. CALL LIGHT IS WITHIN HER REACH.
[2022-03-12 07:26] LABS: BASOPHILS ABSOLUTE AUTO 0.02 K/mm3 (0.00-0.23); BASOPHILS PERCENT AUTO 0 % (0-2); EOSINOPHILS PERCENT AUTO 0 % (0-6); Hematocrit 37.9 % (33.0-51.0); Hemoglobin 12.5 g/dL (11.5-16.0); IMMATURE GRAN ABSOLUTE AUTO 0.07 K/mm3 (0.00-0.10); IMMATURE GRAN PERCENT AUTO 1 % (0-1); LYMPHOCYTES ABSOLUTE AUTO 1.62 K/mm3 (0.84-5.20); LYMPHOCYTES PERCENT AUTO 13 % (21-46); MONOCYTES ABSOLUTE AUTO 1.15 K/mm3 (0.16-1.47); MONOCYTES PERCENT AUTO 10 % (4-13); Mean Corpuscular HGB 28.9 pg (26.0-34.0); Mean Corpuscular Volume 88 fL (80-100); Mean Platelet Volume 9.1 fL (9.1-12.4); NEUTROPHILS PERCENT AUTO 76 % (41-73); Platelet Count 230 K/mm3 (150-400); RDW Coefficient Variation 15.1 % (11.7-14.2); RDW Standard Deviation 48.1 fL (35.1-46.3); Red Blood Cell Count 4.32 M/mm3 (3.80-5.20); White Blood Cell Count 12.16 K/mm3 (4.00-11.30)
[2022-03-12 07:47] LABS: Bun/Creatinine Ratio 14.9 (12.0-20.0); Calcium, Blood 8.2 mg/dL (8.5-10.1); Creatinine, Blood 0.54 mg/dL (0.40-1.00)
[2022-03-12 09:33] LABS: CHOL/HDL RATIO 2.7; Cholesterol 121 mg/dL (50-200); HDL Cholesterol 45 mg/dL (>39); LDL/HDL RATIO 1.4; Low Density Lipoprotein Chol 64 mg/dL (0-110); Triglycerides 58 mg/dL (30-160); Very Low Density Lipoprot Chol 11 mg/dL (6-32)
--- NOTE | 2022-03-12 17:49 | NUR ---
SHIFT SUMMARY PT A&OX3 AND IN PLEASENT MOOD T/O SHIFT. TELE ALERTED THIS RN SEVERAL TIMES T/O SHIFT REGAURDING TACHYCARDIA- NOTIFIED, IV METOPROLOL ADMINISTERED, MEDS ADJUSTED. PLAN TO MED MANAGE HR. MEDICALLY. HTN NOTED. TELE IN PLACE, AFLUTT 110'S. CALL LIGHT W/IN REACH. TOLERATING PO INTAKE W/ FEED ASSIST.
--- NOTE | 2022-03-13 06:09 | NUR ---
SHIFT SUMMARY PATIENT DENIES PAIN, NAUSEA, AND SHORTNESS OF BREATH. PATIENT IS A LIFT FOR TRANSFERS. PATIENT IS A 2P TO REPOSITION. JEROME IS PATENT AND DRAINING TO GRAVITY. PATIENT HAS LEFT SIDE DEFICITS. PATIENT A&O 2-3. NEW IV PLACED TO LEFT FOREARM. PATIENT HR SUSTAINING IN 140'S. DR. GONZALEZ CALLED, NEW ORDERS FOR ONE TIME CARDIZEM PUSH. TELE NOTIFIED AND MEDICATION GIVEN. GOOD EFFECT. HR SUSTAINING 90'S-LOW 100'S. PATIENT STATES SHE HAD NO SYMPTOMS, BUT PATIENT TACHYPNEA. PATIENT SLEPT MOST OF SHIFT. PATIENT IS PLEASANT AND COOPERATIVE WITH CARE.
[2022-03-13 06:24] LABS: BASOPHILS ABSOLUTE AUTO 0.02 K/mm3 (0.00-0.23); BASOPHILS PERCENT AUTO 0 % (0-2); EOSINOPHILS ABSOLUTE AUTO 0.02 K/mm3 (0.00-0.68); EOSINOPHILS PERCENT AUTO 0 % (0-6); Hematocrit 37.4 % (33.0-51.0); Hemoglobin 12.5 g/dL (11.5-16.0); IMMATURE GRAN ABSOLUTE AUTO 0.06 K/mm3 (0.00-0.10); IMMATURE GRAN PERCENT AUTO 0 % (0-1); LYMPHOCYTES ABSOLUTE AUTO 2.27 K/mm3 (0.84-5.20); LYMPHOCYTES PERCENT AUTO 17 % (21-46); MONOCYTES ABSOLUTE AUTO 1.07 K/mm3 (0.16-1.47); MONOCYTES PERCENT AUTO 8 % (4-13); Mean Corpuscular HGB 29.1 pg (26.0-34.0); Mean Corpuscular HGB Conc 33.4 g/dL (31.5-36.5); Mean Corpuscular Volume 87 fL (80-100); Mean Platelet Volume 9.3 fL (9.1-12.4); NEUTROPHILS ABSOLUTE AUTO 10.13 K/mm3 (1.96-9.15); NEUTROPHILS PERCENT AUTO 75 % (41-73); Platelet Count 244 K/mm3 (150-400); RDW Coefficient Variation 15.3 % (11.7-14.2); RDW Standard Deviation 47.7 fL (35.1-46.3); White Blood Cell Count 13.57 K/mm3 (4.00-11.30)
[2022-03-13 06:54] LABS: Bun/Creatinine Ratio 27.1 (12.0-20.0); Calcium, Blood 8.2 mg/dL (8.5-10.1); Creatinine, Blood 0.59 mg/dL (0.40-1.00); Potassium, Blood 3.4 mmol/L (3.5-5.5)
--- NOTE | 2022-03-13 17:21 | NUR ---
SHIFT SUMMARY: NO ACUTE EVENTS. TELEMETRY SHOWS AFIB 95-120'S, NO IV CARDIAC MEDS GIVEN THIS SHIFT. METOPROLOL DOSE INCREASED. MORE ALERT THIS AFTERNOON, BUT IS HALLUCINATING PER HER DAUGHTER (TALKED ABOUT GOING OUTSIDE LAST NIGHT WIH HER BOYS AND WATCHED A MOVIE). BREATH SOUNDS DIM WITH WHEEZES, PT DENIED SOB AND SAID HER BREATHING WAS FINE, O2 SAT 96% ON RA. JEROME DRAINING ADEQUATE URINE. POTASSIUM REPLACED. WAS ABLE TO DANGLE AT BEDSIDE THIS MORNING. DAUGHTER VISITED THIS AFTENOON.
--- NOTE | 2022-03-14 04:38 | NUR ---
SHIFT SUMMARY PT HR SUSTAINING AROUND 100-135 THROUGHOUT NIGHT, INCREASING TO 170/180'S WITH TURNING AND PERICARE BUT DECREASES ONCE RESTING. IV FLUIDS RUNNING. JEROME CATHETER IN PLACE, CLEAR YELLOW URINE FOR OUTPUT. MEPILEX INTAKE ON COCCYX. NO S/S OF DISTRESS DURING NIGHT. WILL CONTINUE TO MONITOR.
--- NOTE | 2022-03-14 05:04 | NUR ---
0500 NOTIFIED BY TELE PT HAD 5 BEATS VTACH. PT ASLEEP SNORING, HR BACK DOWN TO 110'S AT ASSESSMENT. NOTIFIED OF VTACH AND HR SUSTAINING 100-130 OVERNIGHT. NO NEW ORDERS.
[2022-03-14 06:13] LABS: BASOPHILS ABSOLUTE AUTO 0.02 K/mm3 (0.00-0.23); BASOPHILS PERCENT AUTO 0 % (0-2); EOSINOPHILS ABSOLUTE AUTO 0.05 K/mm3 (0.00-0.68); EOSINOPHILS PERCENT AUTO 0 % (0-6); Hematocrit 35.6 % (33.0-51.0); Hemoglobin 12.1 g/dL (11.5-16.0); IMMATURE GRAN ABSOLUTE AUTO 0.07 K/mm3 (0.00-0.10); IMMATURE GRAN PERCENT AUTO 1 % (0-1); LYMPHOCYTES ABSOLUTE AUTO 1.84 K/mm3 (0.84-5.20); LYMPHOCYTES PERCENT AUTO 16 % (21-46); MONOCYTES ABSOLUTE AUTO 0.78 K/mm3 (0.16-1.47); MONOCYTES PERCENT AUTO 7 % (4-13); Mean Corpuscular HGB 29.5 pg (26.0-34.0); Mean Corpuscular Volume 87 fL (80-100); Mean Platelet Volume 9.9 fL (9.1-12.4); NEUTROPHILS ABSOLUTE AUTO 9.13 K/mm3 (1.96-9.15); NEUTROPHILS PERCENT AUTO 77 % (41-73); Platelet Count 242 K/mm3 (150-400); RDW Coefficient Variation 15.8 % (11.7-14.2); RDW Standard Deviation 49.3 fL (35.1-46.3); White Blood Cell Count 11.89 K/mm3 (4.00-11.30)
[2022-03-14 06:34] LABS: Bun/Creatinine Ratio 25.2 (12.0-20.0); Calcium, Blood 8.3 mg/dL (8.5-10.1); Creatinine, Blood 0.48 mg/dL (0.40-1.00); Potassium, Blood 3.6 mmol/L (3.5-5.5)
--- NOTE | 2022-03-14 15:21 | NUR ---
1115: PT IN AFIB, HR TRENDING > 120 SUSTAINED. RECEIVED METOPROLOL 50 MG PO THIS MORNING. DR. VASQUEZ NOTIFIED. THIS AUTHOR ASKED PROVIDER TO CONSIDER LOW DOSE OF CARDIZEM FOR RATE CONTROL. 1200: PROVIDER ORDERED ADDITIONAL 25 MG DOSE OF METOPROLOL. ASKED THIS AUTHOR TO WATCH HR AND REPORT IN A COUPLE OF HOURS TO SEE IF MEDICATIONS NEEDED TO BE ADJUSTED. 1520: ASKED TELEMETRY WHAT PT'S AVG HR HAS BEEN OVER THE PAST FEW HOURS; IT HAS NOT GONE HIGHER THAN 121 SINCE 1330. CURRENT HR IS 95. NOTIFIED PROVIDER OF DECREASE IN HR, MAY STILL ADJUST MEDICATIONS.
--- NOTE | 2022-03-14 19:29 | NUR ---
SHIFT SUMMARY: AFTER GIVING 100 MG METOPROLOL AT 1730, HR HAS DECREASED TO 90'S WITH OCCASIONAL INCREASES TO 110'S. NO SIGNIFICANT CHANGE IN NEURO EXAM; STILL WITH RIGHT GAZE, WEAKNESS ON L SIDE, L FACIAL DROOP. PT VERY SLEEPY THIS MORNING. JEROME PATENT. DENIES PAIN UNLESS BEING REPOSITIONED. WORKED WITH PHYSICAL THERAPY TODAY, INCREASED WEAKNESS NOTED (PERHAPS R/T SOMNOLENCE?). APPETITE OK, REQUIRES FEEDING ASSISTANCE. DAUGHTER MARQUEZ VISITED FOR A SHORT TIME TODAY.
--- NOTE | 2022-03-15 04:22 | NUR ---
Shift Summary HR maintaining around 90-120 overnight, increasing to 140's with care. 7 beats VTACH, no symptoms. SBP elevated above 160, hydralyzine given that was effective. No s/s of distress noted during shift. Goodwin draining clear yellow urine. New mepilex applied to R buttock tear. C1xfcsq maintained. Bed low and locked. Will continue to monitor.
[2022-03-15 05:27] LABS: BASOPHILS ABSOLUTE AUTO 0.02 K/mm3 (0.00-0.23); BASOPHILS PERCENT AUTO 0 % (0-2); EOSINOPHILS PERCENT AUTO 1 % (0-6); Hematocrit 37.7 % (33.0-51.0); IMMATURE GRAN ABSOLUTE AUTO 0.06 K/mm3 (0.00-0.10); IMMATURE GRAN PERCENT AUTO 1 % (0-1); LYMPHOCYTES ABSOLUTE AUTO 1.68 K/mm3 (0.84-5.20); LYMPHOCYTES PERCENT AUTO 15 % (21-46); MONOCYTES ABSOLUTE AUTO 0.73 K/mm3 (0.16-1.47); MONOCYTES PERCENT AUTO 6 % (4-13); Mean Corpuscular HGB 29.7 pg (26.0-34.0); Mean Corpuscular HGB Conc 34.5 g/dL (31.5-36.5); Mean Corpuscular Volume 86 fL (80-100); Mean Platelet Volume 9.7 fL (9.1-12.4); NEUTROPHILS ABSOLUTE AUTO 8.76 K/mm3 (1.96-9.15); NEUTROPHILS PERCENT AUTO 77 % (41-73); Platelet Count 250 K/mm3 (150-400); RDW Coefficient Variation 15.5 % (11.7-14.2); RDW Standard Deviation 48.5 fL (35.1-46.3); Red Blood Cell Count 4.37 M/mm3 (3.80-5.20); White Blood Cell Count 11.35 K/mm3 (4.00-11.30)
[2022-03-15 05:59] LABS: Albumin, Blood 2.2 g/dL (3.4-5.0); Albumin/Globulin Ratio 0.7 (0.8-1.8); Bilirubin, Total 0.6 mg/dL (0.1-1.0); Bun/Creatinine Ratio 21.8 (12.0-20.0); Calcium, Blood 8.1 mg/dL (8.5-10.1); Creatinine, Blood 0.41 mg/dL (0.40-1.00); Globulin, Blood 3.3 g/dL (2.2-4.0); Potassium, Blood 2.9 mmol/L (3.5-5.5); Total Protein, Blood 5.5 g/dL (6.4-8.2)
--- NOTE | 2022-03-15 06:13 | NUR ---
K+ 2.9. Paged Dr. Eugene, new order for KCL 60mEq IV once.
--- NOTE | 2022-03-15 16:12 | NUR ---
SHIFT SUMMARY: NO ACUTE EVENTS. HR STABLE, AFIB 92-108. WAS HYPERTENSIVE THIS MORNING; PROVIDER INCREASED LOSARTAN TO 100 MG, HTN RESOLVED WITHOUT GIVING ANY PRN IV MEDICATION. MORE ALERT TODAY, ASKING QUESTIONS, AND LUE WEAKNESS SLIGHTLY IMPROVED. IS CONFUSED, HAVING HALLUCINATIONS OCCASIONALLY. MEDICATED FOR BACK PAIN WITH TYLENOL. APPETITE ALSO SLIGHTLY IMPROVED.
--- NOTE | 2022-03-16 04:17 | NUR ---
SHIFT SUMMARY PT SLEPT OFF AND ON THIS EVENING. ALERT TO SELF ONLY. PT HAVING MILD HALLUCINATIONS INTERMITTENTLY. CONTINUES WITH LEFT SIDED WEAKNESS AND GAZE TO THE RIGHT. NO CHANGE IN NEURO STATUS. PT HAD TWO SMALL BM'S. MEPILEX CHANGED TO LEFT BUTTOCKS SKIN TEAR. PT IS STIFF AND PAINFUL WITH TURNING AND REPOSITIONING. HEART RATE RANGING FROM THE LOW 100'S TO THE 170'S. MOSTLY BUMPING BETWEEN THE 110'S AND THE 130'S. NEVER SUSTAINING ABOUT THE 110'S AND ONLY REACHING THE 170'S DURING REPOSITIONING. PT ALSO HAD A 21 BEAT RUN OF VTACH. DR. BOOKER NOTIFIED. MAGNESIUM ADDED ON TO MORNING LABS. OTHERWISE NO NEW ORDERS AT THIS TIME.
[2022-03-16 05:09] LABS: BASOPHILS ABSOLUTE AUTO 0.01 K/mm3 (0.00-0.23); BASOPHILS PERCENT AUTO 0 % (0-2); EOSINOPHILS ABSOLUTE AUTO 0.07 K/mm3 (0.00-0.68); EOSINOPHILS PERCENT AUTO 1 % (0-6); Hematocrit 38.9 % (33.0-51.0); IMMATURE GRAN ABSOLUTE AUTO 0.06 K/mm3 (0.00-0.10); IMMATURE GRAN PERCENT AUTO 1 % (0-1); LYMPHOCYTES ABSOLUTE AUTO 1.89 K/mm3 (0.84-5.20); LYMPHOCYTES PERCENT AUTO 18 % (21-46); MONOCYTES ABSOLUTE AUTO 0.67 K/mm3 (0.16-1.47); MONOCYTES PERCENT AUTO 6 % (4-13); Mean Corpuscular HGB 29.1 pg (26.0-34.0); Mean Corpuscular HGB Conc 33.4 g/dL (31.5-36.5); Mean Corpuscular Volume 87 fL (80-100); Mean Platelet Volume 9.4 fL (9.1-12.4); NEUTROPHILS ABSOLUTE AUTO 7.85 K/mm3 (1.96-9.15); NEUTROPHILS PERCENT AUTO 74 % (41-73); Platelet Count 268 K/mm3 (150-400); RDW Coefficient Variation 15.7 % (11.7-14.2); RDW Standard Deviation 49.1 fL (35.1-46.3); Red Blood Cell Count 4.47 M/mm3 (3.80-5.20); White Blood Cell Count 10.55 K/mm3 (4.00-11.30)
[2022-03-16 05:41] LABS: Bun/Creatinine Ratio 24.1 (12.0-20.0); Calcium, Blood 8.1 mg/dL (8.5-10.1); Creatinine, Blood 0.5 mg/dL (0.40-1.00); Magnesium, Blood 1.7 mg/dL (1.6-2.4); Potassium, Blood 3.8 mmol/L (3.5-5.5)
--- NOTE | 2022-03-16 16:46 | NUR ---
NO ACUTE CHANGES AT THIS TIME. PT AO AND TALKS MOST OF HER SPEACH MAKES SENSE. AT TIMES SHE WILL THINK SHE HOLDS SOMETHING IN HER HAD THAT IS NOT THERE. PT TURN EVERY COUPLE HOURS AND IS COOPERATIVE OF CARE. PT STILL GAZES TO THE RIGHT, BUT NOT PRONOUNCE IN THE START OF SHIFT. PT CONTINUES TO HAVE L SIDED WEAKNESS WITH NO IMPROVEMENTS. JUSTUS IS PATIENT AT THIS TIME. BED ALARM IS IN PLACE AND CALL LIGHT WITHIN REACH. WILL CONTINUE TO MONITOR.
--- NOTE | 2022-03-17 03:18 | NUR ---
ALERT TO SELF (BELIEVES SHE IS 40 AND THAT HER MOTHER WILL BE HERE TO VISIT). C/O PAIN "EVERYWHERE" - PRN TYLENOL GIVEN. TELE: A-FIB WITH HR UP TO 150 - MD INFORMED, NEW ORDER FOR PRN METOPROLOL GIVEN. REPOSITIONED APPROX Q2 HRS. PO FLUIDS OFFERED FREQUENTLY; PATIENT STATES SHE LOVES ENSURE. FOAM DRSGS TO COCCYX AND R BUTTOCK CDI. JEROME PATENT. BED ALARM. CALL LIGHT IN REACH; ENCOURAGED TO MAKE NEEDS KNOWN. FREQUENT ROUNDING/ ANTICIPATION OF NEEDS.
--- NOTE | 2022-03-17 16:28 | NUR ---
NO ACUTE CHANGES AT THIS TIME. PT CONTINUES WITH L SIDED WEAKNESS AND NEED TURNED EVERY COUPLE HOURS.PT WILL TALK WITH SOME THINGS THAT DO NOT MAKE SENSE THEN OTHER TIMES PT WILL BE MORE UNDERSTANDABLE. CALL LIGHT PLACED AND BED ALARM IS ON WILL CONTINUE TO MONITOR.
--- NOTE | 2022-03-18 07:26 | NUR ---
ALERT TO SELF; CALM AND COOPERATIVE WITH CARE. DENIES PAIN THIS SHIFT. 2X ASSIST TO TURN /CHANGE Q2 HRS; SEVERAL INC BM THIS SHIFT. DRESSINGS TO COCCYX AND R BUTTOCK CHANGED. PRN METOPROLOL GIVEN FOR SBP > 160 AND HR BRIEFLY UP TO 150 INTERMITTENTLY; IMPROVEMENT IN VS AFTER ADMIN. IVF PER ORDERS. PO FLUIDS ENCOURAGED; GOOD ENSURE INTAKE. BED ALARM SET, CALL LIGHT IN REACH, FREQUENT ROUNDING / ANTICIPATION OF NEEDS.
--- NOTE | 2022-03-18 16:51 | NUR ---
SHIFT SUMMARY- ON RA. RUNNING NS @ 75 HR. IV PATENT RUNNING WELL. BM ON SHIFT. D/C JEROME, FIRST URINATION 2 HRS AFTER IN BRIEF. PT REPORTS SHE SOMETIME FEELS WHEN SHE CAN URINATE. A@O X2. DAUGHTER REPORTS SOME CONFUSION. NURSE DID NOT SEE CONFUSION EPISODES. MEDS CRUSHED IN APPLESAUCE. APPETITE GOOD. SAT IN CHAIR FOR HR OF SHIFT. REPOSTIONED Q2. CALL LIGHT IN REACH, SIDE RAILS UP, AND BED ALARM ON FOR SAFETY.
--- NOTE | 2022-03-19 04:06 | NUR ---
SHIFT SUMMARY: Patient A/Ox1, bed alarm utilized for patient safety. Neuro checks remained unchanged overnight. Pt did recieve 1 PRN dose of IV metoprolol for a systolic bp >160. Patient appeared to rest comfortably in bed between cares. pt incontient of B/B. Repostioned Q2h. IVF continue to infuse.
[2022-03-19 08:16] LABS: BASOPHILS ABSOLUTE AUTO 0.03 K/mm3 (0.00-0.23); BASOPHILS PERCENT AUTO 0 % (0-2); EOSINOPHILS ABSOLUTE AUTO 0.11 K/mm3 (0.00-0.68); EOSINOPHILS PERCENT AUTO 1 % (0-6); Hematocrit 38.9 % (33.0-51.0); Hemoglobin 13.2 g/dL (11.5-16.0); IMMATURE GRAN ABSOLUTE AUTO 0.05 K/mm3 (0.00-0.10); IMMATURE GRAN PERCENT AUTO 0 % (0-1); LYMPHOCYTES PERCENT AUTO 15 % (21-46); MONOCYTES ABSOLUTE AUTO 0.93 K/mm3 (0.16-1.47); MONOCYTES PERCENT AUTO 8 % (4-13); Mean Corpuscular HGB 29.9 pg (26.0-34.0); Mean Corpuscular HGB Conc 33.9 g/dL (31.5-36.5); Mean Corpuscular Volume 88 fL (80-100); Mean Platelet Volume 9.8 fL (9.1-12.4); NEUTROPHILS ABSOLUTE AUTO 8.85 K/mm3 (1.96-9.15); NEUTROPHILS PERCENT AUTO 76 % (41-73); Platelet Count 297 K/mm3 (150-400); RDW Coefficient Variation 16.4 % (11.7-14.2); RDW Standard Deviation 52.4 fL (35.1-46.3); Red Blood Cell Count 4.41 M/mm3 (3.80-5.20); White Blood Cell Count 11.67 K/mm3 (4.00-11.30)
[2022-03-19 08:37] LABS: Bun/Creatinine Ratio 17.8 (12.0-20.0); Calcium, Blood 8.3 mg/dL (8.5-10.1); Creatinine, Blood 0.39 mg/dL (0.40-1.00); Potassium, Blood 3.3 mmol/L (3.5-5.5)
--- NOTE | 2022-03-19 17:09 | NUR ---
SHIFT SUMMARY PT ALERT TO SELF. L SIDE DEFICIT AND R SIDE GAZE PRESENT. LIFT TO GET UP TO THE CHAIR. MEPILEX DRESSINGS CHANGED THIS SHIFT. WORKED WITH PHYSICAL AND OCCUPATIONAL THERAPY. VSS.
--- NOTE | 2022-03-20 04:13 | NUR ---
SHIFT SUMMARY: Patient orientation status waxed and waned this shift, but typically remained A/Ox1. Neuros remain unchaged from previous shift. Pt transferred utilizing Lift with 2 assist. Pt repostioned Q2h. She has been largely incontient of urine and bowels. Pt appeared comfortable and denied pain. Lung sounds where slighly couarse and wheezy. Oxygen reamined >95% on RA. Currently awaiting placement, social work is involved.
[2022-03-20 14:38] LABS: Influenza A, PCR NEGATIVE (NEGATIVE); Influenza B, PCR NEGATIVE (NEGATIVE); Resp Syncytial Virus, PCR NEGATIVE (NEGATIVE); SARS-Cov-2 (COVID-19) PCR, MMC NEGATIVE (NEGATIVE)
[2022-03-20] MEDS ORDERED: AMLO10 PO (14:42)
[2022-03-20] MEDS ORDERED: ELIQUIS5 M2 PO (14:42)
[2022-03-20] MEDS ORDERED: ASPI81CH PO (14:43)
[2022-03-20] MEDS ORDERED: HYDROCHLOROTH12.5 MG PO (14:43)
[2022-03-20] MEDS ORDERED: DONE5 PO (14:43)
[2022-03-20] MEDS ORDERED: MICONAZOLE NITR85 GM TOP (14:45)
[2022-03-20] MEDS ORDERED: VISBIOME 112.51 EACH PO (14:45)
--- NOTE | 2022-03-20 18:06 | NUR ---
SHIFT SUMMARY NO ACUTE CHANGES THIS SHIFT. PT UP IN THE CHAIR TODAY WITH A LIFT. PT TURNED Q2 AND DRESSINGS APPLIED TO WOUNDS ON BUTTOCKS. VSS. PT TO DC TO [facility] THIS EVENING.
--- NOTE | 2022-03-20 20:27 | NUR ---
AMBULANCE TRANSPORTING PATIENT VIA GURNEY TO [facility]. DC PACKET TAKEN WITH PERSONAL BELONGINGS.
== END 2022-03-20 20:30 | DRG 871 ==
LOC: ER 07:01 → MEDS 12:10
PROVIDERS: Emergency Medicine; Family Medicine; Family Medicine Adult Medicine; Nurse Practitioner Acute Care; ADMIT Internal Medicine
DX: A41.51 Sepsis due to Escherichia coli [E. coli] (principal); G92.8 Other toxic encephalopathy; J69.0 Pneumonitis due to inhalation of food and vomit; J18.9 Pneumonia, unspecified organism; I63.511 Cerebral infarction due to unspecified occlusion or stenosis of right middle cerebral artery; E87.1 Hypo-osmolality and hyponatremia; N39.0 Urinary tract infection, site not specified; J44.0 Chronic obstructive pulmonary disease with (acute) lower respiratory infection; G81.94 Hemiplegia, unspecified affecting left nondominant side; R65.20 Severe sepsis without septic shock; B96.5 Pseudomonas (aeruginosa) (mallei) (pseudomallei) as the cause of diseases classified elsewhere; E11.9 Type 2 diabetes mellitus without complications; I10 Essential (primary) hypertension; E78.00 Pure hypercholesterolemia, unspecified; F17.210 Nicotine dependence, cigarettes, uncomplicated; E87.6 Hypokalemia; E03.9 Hypothyroidism, unspecified; Z20.822 Contact with and (suspected) exposure to COVID-19; E86.1 Hypovolemia; I48.91 Unspecified atrial fibrillation; Z79.899 Other long term (current) drug therapy; Z79.4 Long term (current) use of insulin; Z98.890 Other specified postprocedural states; Z88.5 Allergy status to narcotic agent; Z90.710 Acquired absence of both cervix and uterus; Z79.51 Long term (current) use of inhaled steroids; Z79.82 Long term (current) use of aspirin; Z79.2 Long term (current) use of antibiotics; Z79.02 Long term (current) use of antithrombotics/antiplatelets
CPT/HCPCS: 0241U; 36415; 51702; 70450; 70496; 71045; 80048; 80053; 80061; 81001; 82550; 82553; 82947; 83036; 83605; 83735; 84443; 85025; 85027; 87040; 87077; 87086; 87186; 87449; 92526; 92610; 93005; 93010; 93306; 93880; 94640; 94664; 94760; 94762; 96361-59; 96365-59; 97110; 97112; 97162; 97166; 97530; 97535; 99285-25; A9270; J0295; J0360; J0696; J1650; J1956; J3480; J7030; J7050